=== PATIENT | male | born 1975 | race African-American/Black ===

== ENCOUNTER 2016-10-04 05:25 | Inpatient (IN) | payer OTHER ==
[~2016-10-04] VITALS: Ht 172.7 cm; Wt 136.1 kg
[2016-10-04] MEDS ORDERED: CEFAZOLIN SODIUM/DEXTROSE,ISO 50 ML IV ONE (08:30)
[2016-10-04] MEDS ORDERED: BACITRACIN 50000 UNITS/VIAL ONE (08:35)
[2016-10-04] MEDS ORDERED: MORPHINE SULFATE/PF 10 MG/10ML (1MG/ML) AMPUL ONE (08:39)
[2016-10-04] MEDS ORDERED: KETOROLAC TROMETHAMINE INJ 30 MG/ML VIAL ONE (08:39)
[2016-10-04] MEDS ORDERED: NEEDLELESS EST SET LARGE BORE 1 EA INFUS.SET MC ONE (08:42)
[2016-10-04] MEDS ORDERED: SECONDARY IV SET 1 EA INFUS.SET MC ONE ×2 (08:42→18:03)
[2016-10-04] MEDS ORDERED: IV SET PRIMARY 1 EA INFUS.SET MC ONE (08:42)
[2016-10-04] MEDS ORDERED: IV LR 1000 ML 1,000 ML ONE (08:42)
[2016-10-04] MEDS ORDERED: MIDAZOLAM HCL 2 MG/2ML VIAL ONE (08:46)
[2016-10-04] MEDS ORDERED: TRANEXAMIC ACID 3,000 MG in SODIUM CHLORIDE IRRIG SOLUTION 70 ML IR ONE (09:00)
[2016-10-04 10:47] VITALS: BP 141/91
[2016-10-04] MEDS ORDERED: FENTANYL PF 100MCG/2ML AMPUL ONE (11:06)
[2016-10-04] MEDS ORDERED: HYDROMORPHONE INJ 2 MG/ML DISP.SYRIN ONE (11:25)
[2016-10-04] MEDS ORDERED: TYLENOL 650 MG TABLET PO PRN (12:00)
[2016-10-04] MEDS ORDERED: NALOXONE HCL 0.4 MG/ML AMPUL IV PRN (12:00)
[2016-10-04] MEDS ORDERED: SENOKOT 8.6 MG TABLET PO PRN (12:00)
[2016-10-04] MEDS ORDERED: COLACE 250 MG CAPSULE PO PRN (12:00)
[2016-10-04] MEDS ORDERED: ZOFRAN 4mg/2ML IV PRN (12:00)
[2016-10-04] MEDS ORDERED: HYDROMORPHONE MDV 30 MG in IV NS 0.9% 15 ML, PCA TOTAL VOLUME 1 BAG IV PRN ×3 (12:00)
[2016-10-04] MEDS ORDERED: HYDROCODONE/APAP 5/325MG 1 EACH TABLET PO PRN ×2 (12:00→14:30)
[2016-10-04] MEDS ORDERED: AMBIEN 5 MG TABLET PO PRN (12:00)
[2016-10-04] MEDS ORDERED: DULCOLAX 10 MG/SUPP.RECT RC PRN (12:00)
[2016-10-04] MEDS ORDERED: HYDROMORPHONE 1 MG/1 ML DISP.SYRIN ONE (12:06)
[2016-10-04 13:00] VITALS: BP 153/82
[2016-10-04] MEDS ORDERED: HYDROCODONE/APAP 10/325MG 1 EA TABLET PO PRN (14:30)
[2016-10-04] MEDS ORDERED: IV SET PRIMARY PUMP SET 1 EA INFUS.SET MC ONE (15:46)
[2016-10-04] MEDS: HYDROMORPHONE 1 MG/1 ML DISP.SYRIN SQ PRN ×3 (15:51→23:21)
[2016-10-04] MEDS: IV D5/0.45 NACL 1,000 ML IV PRN (15:52)
[2016-10-04 16:00] VITALS: BP 151/95
[2016-10-04] MEDS: ANCEF 1 G in IV D5W 50 ML IV SCH (18:06)
[2016-10-04] MEDS ORDERED: ANESTHESIA TRAY IN PYXIS 1 EA TRAY MC ONE (18:31)
[2016-10-04 20:00] VITALS: BP 127/66
[2016-10-04 20:46] VITALS: BP 127/66
[2016-10-04] MEDS ORDERED: ONDANSETRON HCL/PF 4 MG/2 ML VIAL IV PRN (21:00)
[2016-10-04] MEDS ORDERED: MAG HYDROX/AL HYDROX/SIMETH 30 ML UDC PO PRN (21:00)
[2016-10-04] MEDS ORDERED: diphenhydrAMINE HCL 25 MG CAPSULE PO PRN (21:00)
[2016-10-04] MEDS ORDERED: CLONIDINE HCL 0.1 MG TABLET PO PRN (21:00)
[2016-10-04] MEDS: oxyCODONE IR immediate release 5 MG CAPSULE PO PRN (21:17)
[2016-10-04] MEDS: PANTOPRAZOLE 40 MG TABLET.DR PO SCH (23:17)
[2016-10-05] MEDS ORDERED: SECONDARY IV SET 1 EA INFUS.SET MC ONE (00:52)
[2016-10-05] MEDS: IV D5/0.45 NACL 1,000 ML IV PRN ×2 (00:56→22:02)
[2016-10-05] MEDS: ANCEF 1 G in IV D5W 50 ML IV SCH (00:56)
[2016-10-05] MEDS: HYDROMORPHONE 1 MG/1 ML DISP.SYRIN SQ PRN ×6 (03:53→22:04)
[2016-10-05 04:41] VITALS: BP 142/82
[2016-10-05] MEDS: oxyCODONE IR immediate release 5 MG CAPSULE PO PRN ×4 (05:31→18:55)
[2016-10-05] MEDS: ASPIRIN EC 325 MG TABLET.DR PO SCH (07:48)
[2016-10-05 08:03] VITALS: BP 114/75
[2016-10-05] MEDS ORDERED: ASPIRIN 325 MG TABLET PO SCH ×2 (09:00)
[2016-10-05 09:25] VITALS: BP 114/75
[2016-10-05 16:00] VITALS: BP 150/95
[2016-10-05 16:50] VITALS: BP 150/100
[2016-10-05] MEDS ORDERED: RIVAROXABAN 10 MG TABLET PO SCH (17:00)
[2016-10-05 20:00] VITALS: BP 147/83
[2016-10-05] MEDS: PANTOPRAZOLE 40 MG TABLET.DR PO SCH (21:33)
[2016-10-06] VITALS: BP 160/97
[2016-10-06] MEDS: HYDROMORPHONE 1 MG/1 ML DISP.SYRIN SQ PRN ×3 (04:19→14:29)
[2016-10-06 06:52] LABS: BASOPHILS # (AUTO) 0.1 /CMM (0.0-0.2); BASOPHILS % (AUTO) 0.5 % (0.0-2.0); DIFF TOTAL % 100 %; EOSINOPHILS # (AUTO) 0.2 /CMM (0.0-0.7); EOSINOPHILS % (AUTO) 1.4 % (0.0-6.0); HEMATOCRIT 38 % (39-51); HEMOGLOBIN 12.8 g/dL (13.5-17.5); LYMPHOCYTES # (AUTO) 2.4 /CMM (0.8-4.8); LYMPHOCYTES % (AUTO) 22.5 % (20.0-44.0); MEAN CORPUSCULAR HEMOGLOBIN 30 PG (26.0-33.0); MEAN CORPUSCULAR HGB CONC 33 g/dl (31.0-36.0); MEAN CORPUSCULAR VOLUME 89 fL (80-96); MONOCYTES # (AUTO) 1.4 /CMM (0.1-1.30); MONOCYTES % (AUTO) 13.4 % (2.0-12.0); NEUTROPHILS # (AUTO) 6.7 /CMM (1.8-8.9); NEUTROPHILS % (AUTO) 62.2 % (43.0-81.0); PLATELET COUNT (AUTO) 184 /CMM (150-450); RED BLOOD CELL COUNT(AUTO) 4.32 MIL/uL (4.5-6.0); WHITE BLOOD COUNT (AUTO) 10.7 K/uL (4.3-11.0)
[2016-10-06 07:19] LABS: CALCIUM, SERUM 8.4 mg/dL (8.5-10.1); CREATININE 0.7 mg/dL (0.6-1.3); PHOSPHORUS 3.8 mg/dL (2.5-4.9); POTASSIUM 4.1 mmol/L (3.5-5.1)
[2016-10-06 08:00] VITALS: BP_SYST 163; BP_DIAS 107; BP_DIAS 97
[2016-10-06] MEDS: oxyCODONE IR immediate release 5 MG CAPSULE PO PRN ×3 (08:03→18:04)
[2016-10-06] MEDS: ASPIRIN EC 325 MG TABLET.DR PO SCH (08:03)
[2016-10-06] MEDS ORDERED: SECONDARY IV SET 1 EA INFUS.SET MC ONE (12:37)
[2016-10-06] MEDS: Magnesium 1GM/D5W 100ML PREMIX 100 ML IV SCH ×2 (12:40→14:29)
[2016-10-06 16:00] VITALS: BP 153/87
[2016-10-06] MEDS ORDERED: HYDROMORPHONE 1 MG/1 ML DISP.SYRIN SQ STA (16:24)
== END 2016-10-06 18:50 | disposition home or self-care (01) | DRG 470 ==
LOC: DS 05:25 → MEDSG2 12:37
PROVIDERS: ADMIT Specialist; ATTEND Specialist
PROC: 0SRD0L9 Replacement of Left Knee Joint with Medial Unicondylar Synthetic Substitute, Cemented, Open Approach (ICD-10-PCS; principal; 2016-10-04 08:55)
DX: M17.12 Unilateral primary osteoarthritis, left knee (principal); Z68.42 Body mass index [BMI] 45.0-49.9, adult; E44.0 Moderate protein-calorie malnutrition; E78.5 Hyperlipidemia, unspecified; F17.210 Nicotine dependence, cigarettes, uncomplicated; E66.01 Morbid (severe) obesity due to excess calories; M94.262 Chondromalacia, left knee; S83.282A Other tear of lateral meniscus, current injury, left knee, initial encounter; X58.XXXA Exposure to other specified factors, initial encounter; Y93.9 Activity, unspecified; Y92.009 Unspecified place in unspecified non-institutional (private) residence as the place of occurrence of the external cause; Y99.9 Unspecified external cause status
CPT/HCPCS: 36415; 80048-TC; 83735-TC; 84100-TC; 85025-TC; 86850-TC; 86901; 86921-TC; 87081-TC; 88305-TC; 88311-TC; 97001-TC; 97110-TC; 97116-TC; 97530-TC; 97760-TC; A4216; A4217; A6402; C1713; J0690; J1170; J1885; J2250; J2274; J3010; J3475; J3490; J7060; J7120; L1830; Z7610